=== PATIENT | male | born 1980 | race Two or more races ===

== ENCOUNTER 2024-12-13 16:14 | Emergency (ER) | payer MEDICAID, OTHER ==
[~2024-12-13] VITALS: Ht 165.1 cm; Wt 68.1 kg
--- NOTE | 2024-12-13 18:53 | ED.PDOC ---
SOB-HPI HPI Comments 44-year-old male presents to ER with complaints of rib pain x1 day. Patient reports that he slipped in the bathroom and hit his left lower ribcage against the shower tub this morning and has been she has been experiencing 10/10 left posterior rib cage pain. Denies head injury/LOC. Patient presents to ER ambulatory on arrival, speaking in clear and complete sentences in no distress, with vitals stable and states the pain has caused him intermittent episodes of breath with moving/deep inspiration. Denies chest pain, n/v, skin changes, numbness/tingling, abdominal pain, back pain or any further symptoms/complaints Chief Complaint: Rib Pain Time Seen by MD: 18:16 Primary Care Provider: UNKNOWN Reviewed notes: Nurses Notes, Medications, Allergies Information Source: Patient, Significant Other Mode of Arrival: Ambulatory Past Medical History PAST MEDICAL HISTORY: Denies Surgical History: Denies all surgeries Family History Family History: Unknown Social History Smoker: Non-Smoker Alcohol: Denies ETOH Use Drugs: Denies Drug Use Lives In: Home Constitutional: denies: chills, diaphoresis, fatigue, fever, malaise, sweats, weakness, others EENTM: denies: blurred vision, double vision, ear bleeding, ear discharge, ear drainage, ear pain, ear ringing, eye pain, eye redness, hearing loss, mouth pain, mouth swelling, nasal discharge, nose bleeding, nose congestion, nose pain, photophobia, tearing, throat pain, throat swelling, voice changes, others Respiratory: denies: cough, hemoptysis, orthopnea, SOB at rest, shortness of breath, SOB with excertion, stridor, wheezing, others Cardiovascular: denies: chest pain, dizzy spells, diaphoresis, Dyspnea on exertion, edema, irregular heart beat, left arm pain, lightheadedness, palpitations, PND, syncope, others Gastrointestinal: denies: abdomen distended, abdominal pain, blood streaked bowels, constipated, diarrhea, dysphagia, difficulty swallowing, hematemesis, melena, nausea, poor appetite, poor fluid intake, rectal bleeding, rectal pain, vomiting, others Genitourinary: denies: burning, dysuria, flank pain, frequency, hematuria, incontinence, penile discharge, penile sore, pain, testicle pain, testicle swelling, urgency, others Neurological: denies: dizziness, fainting, headache, left sided numbness, left sided weakness, numbness, paresthesia, pre-existing deficit, right sided numbness, right sided weakness, seizure, speech problems, tingling, tremors, weakness, others Musculoskeletal: reports: others (As stated in HPI) Integumetry: denies: bruises, change in color, change in hair/nails, dryness, laceration, lesions, lumps, rash, wounds, others Allergic/Immunocompromised: denies: Difficulty Healing, Frequent Infections, Hives, Itching, others Hematologic/Lymphatic: denies: anemia, blood clots, easy bleeding, easy bruising, swollen glands, others Endocrine: denies: excessive hunger, excessive sweating, excessive thirst, excessive urination, flushing, intolerance to cold, intolerance to heat, unexplained weight gain, unexplained weight loss, others Psychiatric: denies: anxiety, bipolar disorder, depression, hopeless, panic disorder, schizophrenia, sleepless, suicidal, others Physical Exam General Appearance: No Apparent Distress HEENT: PERRL/EOMI Neck: Full Range of Motion, Non-Tender, Normal Respiratory: Lungs Clear, No Accessory Muscle Use, No Respiratory Distress, Normal Breath Sounds, Other (TTP to left lower lateral ribcage noted. No crepitus/flail chest noted. No skin changes appreciated) Cardiovascular: No Murmur, No Gallop, Regular Rate/Rhythm Breast Exam: Deferred Gastrointestinal: Non Tender, No Pulsatile Mass, Soft Genitalia: Deferred Pelvic: Deferred Rectal: Deferred Extremities: Normal capillary refill, Normal range of motion Neurologic: Alert, food quality tester II-XII nml as Tested, No Motor Deficits, Normal Affect, Normal Mood, No Sensory Deficits Cerebellar Function: Normal Reflexes: Normal Skin: Dry, Normal Color, Warm Peripheral Pulses: 2+ Radial (R), 2+ Radial (L), 2+ Brachial (R), 2+ Brachial (L) Lymphatic: No Adenopathy Was a procedure done? Was a procedure done?: No Sedation Sedation?: No Differential Dx Differential Diagnosis: Pneumonia, Pneumothorax, Respiratory Distress, Other (fracture) X-Ray, Labs, Meds, VS Vital Signs Date Time Temp Pulse Resp B/P (MAP) Pulse Ox O2 Delivery O2 Flow Rate FiO2 12/13/24 19:40 60 16 97 Room Air* 0 21 12/13/24 19:40 60 16 121/67 (85) 97 12/13/24 18:58 98.3 57 20 110/67 (81) 99 98.3 12/13/24 17:00 98.2 60 16 108/71 (83) 100 98.2 Current Medications Medications (Trade) Dose Ordered Sig/Yuridia Route Start Time Stop Time Status Last Admin Acetaminophen/ Codeine Phosphate (Tylenol W/Cod #3 Tablet) 1 tab ONCE ONCE PO 12/13/24 19:00 12/13/24 19:01 DC 12/13/24 19:48 Ondansetron HCl (Zofran Po) 4 mg ONCE ONCE PO 12/13/24 19:00 12/13/24 19:01 DC 12/13/24 19:48 Left rib x-ray reviewed Tylenol # three one tablet p.o. ordered Zofran 4 mg p.o. ordered Patient had improvement in symptoms, denied any shortness of breath/chest pain and in no distress prior to discharge Advised on rest/ no strenuous activity Advised to follow up with PCP in 1-2 days Patient verbalized understanding and agreeable with current plan of care Advised to return to ER immediately if symptoms worsen Images Reviewed?: Images reviewed and evaluated by me Time of 1ST Reevaluation: 18:44 Reevaluation 1ST: N/A Patient Education/Counseling: Diagnosis, Treatment, Prognosis, Need For Follow Up Family Education/Counseling: Diagnosis, Treatment, Prognosis, Need For Follow Up SEPSIS Sepsis Screen Date sepsis recognized/suspect: Dec 13, 2024 Time Sepsis recognized/suspect: 1653 Recent Procedure: No On Antibiotic Therapy: No Respiratory Rate >20: No Heart Rate >90: No Temp<36 C (96.8 F) or >38.3 C: No SBP <90 or MAP <65 mmHG: No New Acute Mental Status Change: No Is the patient on CPAP, BIPAP,: No Physician Orders L Rib X Ray (12/13/24 18:41) Vital Signs Date Time Temp Pulse Resp B/P (MAP) Pulse Ox O2 Delivery O2 Flow Rate FiO2 12/13/24 19:40 60 16 97 Room Air* 0 21 12/13/24 19:40 60 16 121/67 (85) 97 12/13/24 18:58 98.3 57 20 110/67 (81) 99 98.3 12/13/24 17:00 98.2 60 16 108/71 (53) 100 98.2 Medications Medications Dose Ordered Sig/Yuridia Route Start Time Stop Time Status Last Admin Dose Admin Acetaminophen/ Codeine Phosphate 1 tab ONCE ONCE PO 12/13/24 19:00 12/13/24 19:01 DC 12/13/24 19:48 Ondansetron HCl 4 mg ONCE ONCE PO 12/13/24 19:00 12/13/24 19:01 DC 12/13/24 19:48 Departure 1 Departure Time of Disposition: 20:52 Impression: Primary Impression: Contusion of rib on left side Qualified Codes: S29.8XXA - Other specified injuries of thorax, initial encounter Disposition: HOME / SELF CARE / HOMELESS Condition: Stable e-Prescriptions Ibuprofen (Ibuprofen) 800 Mg Tab 1 TAB PO TID PRN, #30 TAB 0 Refills Prov: ADRIAN DEGROOT 12/13/24 Discharged With: Significant Other Critical Care Note Critical Care Time?: No Stability Stability form required: No Heart Score Heart Score: Heart Score Response (Comments) Value History N/A 0 EKG N/A 0 Age N/A 0 Risk Factors N/A 0 Troponin N/A 0 Total 0 ADRIAN DEGROOT Dec 13, 2024 18:53
[2024-12-13 19:40] VITALS: PULSE 60; RESP 16; O2SAT 97
[2024-12-13] MEDS: ONDANSETRON ODT 4 MG TAB PO ONE (19:48)
[2024-12-13] MEDS: ACETAMINOPHEN/CODEINE#3 (300/30mg) TAB PO ONE (19:48)
--- NOTE | 2024-12-13 20:54 | DVH ---
EXAMINATION: XY L RIB X RAY INDICATION: left rib pain COMPARISON: None TECHNIQUE: Frontal view of the chest and 4 views of the left ribs history FINDINGS: No focal consolidation, pleural effusion or significant pneumothorax. Normal cardiomediastinal silhou ette. There are 12 left ribs no displaced left rib fracture. IMPRESSION: 1. No acute cardiopulmonary abnormality. 2. No displaced left rib fracture.
[2024-12-13] MEDS ORDERED: IBUP-1456 PO (21:00)
[2024-12-13 21:30] VITALS: BP 116/80; PULSE 60; RESP 17; TEMP 98.1; O2SAT 99
== END 2024-12-13 21:35 | disposition home or self-care (01) ==
LOC: ER 16:20
DX: S20.212A Contusion of left front wall of thorax, initial encounter (principal); W01.0XXA Fall on same level from slipping, tripping and stumbling without subsequent striking against object, initial encounter; Y93.89 Activity, other specified; Y92.091 Bathroom in other non-institutional residence as the place of occurrence of the external cause; Y99.8 Other external cause status
CPT/HCPCS: 71101; 99283; Q0162

== ENCOUNTER 2025-04-17 16:32 | Emergency (ER) | payer MEDICAID ==
[~2025-04-17] VITALS: Ht 157.5 cm; Wt 73.5 kg
[~2025-04-17 16:32] MED LIST: IBUP-1456 PO
[2025-04-17 16:36] VITALS: BP 119/71; PULSE 76; RESP 15; TEMP 98.1; O2SAT 96
[2025-04-17] MEDS: PANTOPRAZOLE 40 MG TAB PO ONE (18:22)
[2025-04-17] MEDS ORDERED: OMEP-434 PO (18:28)
--- NOTE | 2025-04-17 18:28 | ED.PDOC ---
GI ASSESSMENT HPI Comments 44 year old male presents to ER with complaints of ER with complaints of abdominal pain x 2 days. Patient reports he started experiencing 8/10 burning pain to epigastric region that radiates upwards towards his throat 2 days ago that started shortly after eating cheese tacos and drinking beer. States he's had similar symptoms in the past related to "heart burn" and denies use of medications for current symptoms. Patient presents to ER ambulatory on arrival, with steady gait, in no distress with vitals stable. Denies fever, body aches, chills, choking, foreign body sensation of throat, n/v, chest pain, n/v, changes in urination/bm or any further symptoms/complaints Chief Complaint: Foreign Body Time Seen by MD: 18:09 Primary Care Provider: UNKNOWN Reviewed Notes: Nurses Notes, Medications, Allergies Allergies: Coded Allergies: NO KNOWN ALLERGIES (Unverified , 12/13/24) Home Meds Active Scripts Omeprazole Magnesium (Omeprazole) 20 Mg Tab, 20 MG PO DAILY, #30 TAB 0 Refills Prov:ADRIAN DEGROOT 04/17/25 Ibuprofen (Ibuprofen) 800 Mg Tab, 1 TAB PO TID PRN, #30 TAB 0 Refills Prov:ADRIAN DEGROOT 12/13/24 Information Source: Patient Mode of Arrival: Ambulatory Past Medical History PAST MEDICAL HISTORY: GERD, Denies Surgical History: Denies all surgeries Family History Family History: Unknown Social History Smoker: Non-Smoker Alcohol: Occasionally Drugs: Denies Drug Use Lives In: Home Constitutional: denies: chills, diaphoresis, fatigue, fever, malaise, sweats, weakness, others EENTM: reports: others (As stated in HPI) Respiratory: denies: cough, hemoptysis, orthopnea, SOB at rest, shortness of breath, SOB with excertion, stridor, wheezing, others Cardiovascular: denies: chest pain, dizzy spells, diaphoresis, Dyspnea on exertion, edema, irregular heart beat, left arm pain, lightheadedness, palpitations, PND, syncope, others Gastrointestinal: reports: others (As stated in HPI) Genitourinary: denies: burning, dysuria, flank pain, frequency, hematuria, incontinence, penile discharge, penile sore, pain, testicle pain, testicle swelling, urgency, others Neurological: denies: dizziness, fainting, headache, left sided numbness, left sided weakness, numbness, paresthesia, pre-existing deficit, right sided numbness, right sided weakness, seizure, speech problems, tingling, tremors, weakness, others Musculoskeletal: denies: back pain, gout, joint pain, joint swelling, muscle pain, muscle stiffness, neck pain, others Integumetry: denies: bruises, change in color, change in hair/nails, dryness, laceration, lesions, lumps, rash, wounds, others Allergic/Immunocompromised: denies: Difficulty Healing, Frequent Infections, Hives, Itching, others Hematologic/Lymphatic: denies: anemia, blood clots, easy bleeding, easy bruising, swollen glands, others Endocrine: denies: excessive hunger, excessive sweating, excessive thirst, excessive urination, flushing, intolerance to cold, intolerance to heat, unexplained weight gain, unexplained weight loss, others Psychiatric: denies: anxiety, bipolar disorder, depression, hopeless, panic disorder, schizophrenia, sleepless, suicidal, others Physical Exam General Appearance: No Apparent Distress HEENT: Normal ENT Inspection, PERRL/EOMI, Pharynx Normal, TMs Normal Neck: Full Range of Motion, Non-Tender, Normal Respiratory: Chest Non-Tender, Lungs Clear, No Accessory Muscle Use, No Respiratory Distress, Normal Breath Sounds Cardiovascular: No Murmur, No Gallop, Regular Rate/Rhythm Breast Exam: Deferred Gastrointestinal: Epigastric (Slight TTP noted, no rebound/guarding noted. No hernia/masses/skin changes appreciated), No Organomegaly, No Pulsatile Mass, Normal Bowel Sounds, Soft Genitalia: Deferred Pelvic: Deferred Rectal: Deferred Extremities: Normal capillary refill, Normal range of motion Neurologic: Alert, corporate statistical financial analyst II-XII nml as Tested, No Motor Deficits, Normal Affect, Normal Mood, No Sensory Deficits Cerebellar Function: Normal Reflexes: Normal Skin: Dry, Normal Color, Warm Peripheral Pulses: 2+ Radial (R), 2+ Radial (L), 2+ Brachial (R), 2+ Brachial (L) Lymphatic: No Adenopathy Was a procedure done? Was a procedure done?: No Sedation Sedation?: No GI differential Dx Differential Diagnosis: GI hemorrhage, Ischemic Bowel, Trauma intraabdominal X-Ray, Labs, Meds, VS Vital Signs Date Time Temp Pulse Resp B/P (MAP) Pulse Ox O2 Delivery O2 Flow Rate FiO2 04/17/25 16:36 98.1 76 15 119/71 96 98.1 04/17/25 16:36 Room Air* 0 21 Current Medications Medications (Trade) Dose Ordered Sig/Yuridia Route Start Time Stop Time Status Last Admin Pantoprazole Sodium (Protonix Tablet) 40 mg ONCE ONCE PO 04/17/25 18:30 04/17/25 18:31 DC 04/17/25 18:22 PATIENT: ZABRINA GRAFACCT: [id number]: [id number] : 1980 LOC: ER ROOM / BED: / AGE / SEX: 44 / M ADM STATUS: REG ER SERVICE 17 ORDERING PHYSICIAN: JOSÉ QUEEN NP PROCEDURE(s): NECK - NECK FOR SOFT TISSUE REASON: r/o FB ORDER NUMBER(s): [id number], ACCESSION NUMBER(s): [id number] Indication: r/o FB Technique: XY NECK FOR SOFT TISSUEXY Comparison: None FINDINGS/IMPRESSION: No radiopaque foreign body seen. No prevertebral edema. Epiglottis unremarkable. [id number] cervical degenerative disc disease. ATED BY: CONRADO SMILEY MD DICTATED DATE/TIME: 04/17/251849 SIGNED BY: CONRADO SMILEY MD SIGNED DATE/TIME: 04/17/251849 CC: Protonix 40 mg p.o. ordered Patient had improvement in symptoms and denied any abdominal pain prior to d ischarge Neck x-ray reviewed Diet education discussed Advised to follow up with PCP in 1-2 days Patient verbalized understanding and agreeable with current plan of care Advised to return to ER immediately if symptoms worsen Images Reviewed?: Images reviewed and evaluated by me Time of 1ST Reevaluation: 18:05 Reevaluation 1ST: N/A Patient Education/Counseling: Diagnosis, Treatment, Prognosis, Need For Follow Up Family Education/Counseling: No Family Present SEPSIS Sepsis Screen Date sepsis recognized/suspect: Apr 17, 2025 Time Sepsis recognized/suspect: 1636 Recent Procedure: No On Antibiotic Therapy: No Respiratory Rate >20: No Heart Rate >90: No Temp<36 C (96.8 F) or >38.3 C: No SBP <90 or MAP <65 mmHG: No New Acute Mental Status Change: No Is the patient on CPAP, BIPAP,: No Physician Orders Neck For Soft Tissue (04/17/25 17:18) Vital Signs Date Time Temp Pulse Resp B/P (MAP) Pulse Ox O2 Delivery O2 Flow Rate FiO2 04/17/25 16:36 98.1 76 15 119/71 96 98.1 04/17/25 16:36 Room Air* 0 21 Medications Medications Dose Ordered Sig/Yuridia Route Start Time Stop Time Status Last Admin Dose Admin Pantoprazole Sodium 40 mg ONCE ONCE PO 04/17/25 18:30 04/17/25 18:31 DC 04/17/25 18:22 Departure 1 Departure Time of Disposition: 18:52 Impression: Primary Impression: Gastritis Qualified Codes: K29.00 - Acute gastritis without bleeding Disposition: 01 HOME / SELF CARE / HOMELESS Condition: Stable e-Prescriptions Omeprazole Magnesium (Omeprazole) 20 Mg Tab 20 MG PO DAILY, #30 TAB 0 Refills Prov: ADRIAN DEGROOT 04/17/25 Discharged With: Self Critical Care Note Critical Care Time?: No Stability Stability form required: No Heart Score Heart Score: Heart Score Response (Comments) Value History N/A 0 EKG N/A 0 Age N/A 0 Risk Factors N/A 0 Troponin N/A 0 Total 0 ADRIAN DEGROOT Apr 17, 2025 18:28
--- NOTE | 2025-04-17 18:48 | DVH ---
Indication: r/o FB Technique: XY NECK FOR SOFT TISSUEXY Comparison: None FINDINGS/IMPRESSION: No radiopaque foreign body seen. No prevertebral edema. Epiglottis unremarkable. [id number] cervical degenerative disc disease.
== END 2025-04-17 18:55 | disposition home or self-care (01) ==
LOC: ER 16:36
DX: K29.00 Acute gastritis without bleeding (principal); Z79.899 Other long term (current) drug therapy
CPT/HCPCS: 70360